=== PATIENT | male | born 1985 | race Caucasian/White ===

== ENCOUNTER 2024-01-04 12:49 | Emergency (ER) | payer MEDICAID ==
[~2024-01-04] VITALS: Ht 188 cm; Wt 134.9 kg
[~2024-01-04 12:49] MED LIST: ONDA4TAB59 PO; SUCR1ORA12 PO
[2024-01-04 15:09] LABS: BASOPHILS % (AUTO) 0.4 % (0-1); EOSINOPHILS # (AUTO) 0.5 X10'3 (0-0.9); EOSINOPHILS % (AUTO) 4.2 % (0-6); HEMATOCRIT 48.7 % (42.0-52.0); LYMPHOCYTES # (AUTO) 1.3 X10'3 (1.1-4.8); LYMPHOCYTES % (AUTO) 11.5 % (21-51); MEAN CORPUSCULAR HEMOGLOBIN 33.5 PG (27.0-31.0); MEAN CORPUSCULAR HGB CONC 34.8 g/dL (33.0-36.5); MEAN CORPUSCULAR VOLUME 96.2 FL (78-98); MONOCYTES % (AUTO) 8.4 % (2-12); NEUTROPHILS # (AUTO) 8.8 X10'3 (1.8-7.7); NEUTROPHILS % (AUTO) 75.5 % (42-75); PLATELET COUNT 287 X10'3 (140-440); RED BLOOD COUNT 5.07 X10'6 (4.70-6.10); WHITE BLOOD COUNT 11.6 X10'3 (4.5-11.0)
[2024-01-04 15:21] LABS: ALANINE AMINOTRANSFERASE 40 U/L (12-78); ALBUMIN 4.1 G/DL (3.4-5.0); ALBUMIN/GLOBULIN RATIO 1.2 (1.1-1.5); ALKALINE PHOSPHATASE 75 IU/L (46-116); ANION GAP 5 (8-16); ASPARTATE AMINO TRANSFERASE 32 U/L (10-37); BILIRUBIN,TOTAL 1.6 MG/DL (0.1-1.0); BLOOD UREA NITROGEN 13 MG/DL (7-18); BUN/CREATININE RATIO 14.8 (10.0-20.0); CALCIUM 8.7 MG/DL (8.5-10.1); CHLORIDE 103 MMOL/L (99-107); CREATININE 0.88 MG/DL (0.60-1.10); GLUCOSE 101 MG/DL (70-104); LIPASE 27 U/L (16-77); SODIUM 137 MMOL/L (135-145); TOTAL CARBON DIOXIDE 28.6 MMOL/L (24-32); TOTAL PROTEIN 7.6 G/DL (6.4-8.2); eCRCL 130 ML/MIN; eGFR > 90 ML/MIN
[2024-01-04 15:31] LABS: POTASSIUM 4.5 MMOL/L (3.5-5.1)
[2024-01-04] MEDS ORDERED: normal saline 1000ml 1,000 ML IV ONE (15:40)
[2024-01-04 15:49] LABS: ETHANOL < 10 MG/DL (<10)
[2024-01-04] MEDS ORDERED: ondansetron/PF 4mg/2ml inj IV ONE (15:50)
[2024-01-04] MEDS ORDERED: morphine 4 MG/ML inj SYRINge IV ONE (15:50)
[2024-01-04] MEDS ORDERED: ONDA-243 PO (16:10)
[2024-01-04] MEDS ORDERED: LOPE2CAP14 PO (16:10)
[2024-01-04 16:40] VITALS: BP 146/96; PULSE 80; RESP 16; TEMP 97.6; O2SAT 99
== END 2024-01-04 16:41 | disposition home or self-care (01) ==
LOC: ER 12:49
DX: K52.89 Other specified noninfective gastroenteritis and colitis (principal); A08.8 Other specified intestinal infections; J45.909 Unspecified asthma, uncomplicated; F41.9 Anxiety disorder, unspecified; F32.A Depression, unspecified
CPT/HCPCS: 36415; 80053; 80320; 83690; 85025; 99283

== ENCOUNTER 2024-07-17 14:13 | Emergency (ER) | payer MEDICAID ==
[~2024-07-17] VITALS: Ht 190.5 cm; Wt 140.9 kg
[~2024-07-17 14:13] MED LIST changes: +LOPE2CAP14 PO; +ONDA-243 PO
[2024-07-17 14:15] VITALS: TEMP 97.4
--- NOTE | 2024-07-17 14:22 | ELECTROCARDIOGRAPH REPORT ---
[facility] Test Date: 2024-07-17 Test Time: 14:19:59 Pat Name: SCARLETT PACKING INSPECTOR Department: [facility]- Patient ID: [facility]-[id number] Room: Gender: M [employer]: : 1985 Requested By: CANDY BARROSO Order Number: [id number] Reading MD: Measurements Intervals [place] Rate: 80 P: 11 CT: 137 QRS: 41 QRSD: 102 T: -32 QT: 335 QTc: 387 Interpretive Statements Sinus rhythm Posterior infarct, old Borderline repolarization abnormality Please click the below link to view image of tracing.
[2024-07-17 14:55] LABS: BASOPHILS % (AUTO) 0.5 % (0-1); EOSINOPHILS # (AUTO) 0.3 X10'3 (0-0.9); EOSINOPHILS % (AUTO) 3.8 % (0-6); HEMATOCRIT 48.9 % (42.0-52.0); LYMPHOCYTES # (AUTO) 1.7 X10'3 (1.1-4.8); LYMPHOCYTES % (AUTO) 21.2 % (21-51); MEAN CORPUSCULAR HEMOGLOBIN 33.7 PG (27.0-31.0); MEAN CORPUSCULAR HGB CONC 34.8 g/dL (33.0-36.5); MEAN CORPUSCULAR VOLUME 96.9 FL (78-98); MEAN PLATELET VOLUME 8.5 FL (7.4-10.4); MONOCYTES # (AUTO) 0.6 X10'3 (0-0.9); MONOCYTES % (AUTO) 7.7 % (2-12); NEUTROPHILS # (AUTO) 5.4 X10'3 (1.8-7.7); NEUTROPHILS % (AUTO) 66.8 % (42-75); PLATELET COUNT 279 X10'3 (140-440); RED BLOOD COUNT 5.05 X10'6 (4.70-6.10); RED CELL DISTRIBUTION WIDTH 13.5 % (11.5-14.5)
[2024-07-17 15:09] LABS: ALANINE AMINOTRANSFERASE 52 U/L (12-78); ALBUMIN 4.1 G/DL (3.4-5.0); ALBUMIN/GLOBULIN RATIO 1.3 (1.1-1.5); ALKALINE PHOSPHATASE 90 IU/L (46-116); ANION GAP 5 (8-16); ASPARTATE AMINO TRANSFERASE 26 U/L (10-37); BILIRUBIN,TOTAL 1.8 MG/DL (0.1-1.0); BLOOD UREA NITROGEN 13 MG/DL (7-18); BUN/CREATININE RATIO 12.9 (10.0-20.0); CALCIUM 9.2 MG/DL (8.5-10.1); CHLORIDE 103 MMOL/L (99-107); CREATININE 1.01 MG/DL (0.60-1.10); GLUCOSE 91 MG/DL (70-104); POTASSIUM 4.5 MMOL/L (3.5-5.1); SODIUM 137 MMOL/L (135-145); TOTAL CARBON DIOXIDE 29.5 MMOL/L (24-32); TOTAL PROTEIN 7.3 G/DL (6.4-8.2); eCRCL 116 ML/MIN; eGFR 82 ML/MIN
--- NOTE | 2024-07-17 15:13 | RADIOLOGY REPORT ---
Procedure: DI CHEST,SINGLE VIEW 07/17/2024 02:21 PM Indication: CP Comparison: None TECHNIQUE: DI CHEST,SINGLE VIEW FINDINGS: Medical devices: None. Cardiomediastinal: The heart is normal in size. Pulmonary vasculature is within normal limits. Lungs: No focal pulmonary opacity is seen. The costophrenic angles are clear. No pneumothorax. Bones/soft tissues: No acute abnormality is noted. IMPRESSION: 1. No acute cardiopulmonary disease.
[2024-07-17 15:15] LABS: PRO BRAIN NATRIURETIC PEPTIDE < 30 PG/ML (0-125)
--- NOTE | 2024-07-17 16:23 | Physician Documentation ---
History of Present Illness ~ Chief Complaint: Chest Pain Stated Complaint: CP Time Seen by MD: 16:09 Primary Medical Doctor: rica HPI Patient is seen today with acute onset of right-sided chest pain that was stabbing in nature and patient states it is associated when he moves his head back and look separate. Patient states he was concerned for a heart attack. Patient denies any previous heart attack or cardiac history or heart disease. Patient does admit to taking blood pressure medication for hypertension but denies any diabetes or other risk factors. Patient denies any nausea, vomiting, diarrhea, shortness of breath. Patient has no other concern or complaint at this time. Medication Reconciliation Allergies: Coded Allergies: No Known Allergies (Unverified , 01/04/24) Scheduled ONDANSETRON ODT 4mg tablet (Ondansetron Odt), 4 MG PO Q6H Ondansetron Hcl (Ondansetron Hcl), 4 MG PO Q6H Sucralfate (Carafate), 10 ML PO ACHS Scheduled PRN Loperamide HCl (Anti-Diarrheal), 1 CAP PO Q8H PRN for diarrhea Past Medical History Past Medical History: Asthma, Anxiety, Depression Past Surgical History: no surgical history Alcohol Use: Sober Drug Use: none Occupation: disabled Review of Systems Constitutional: Denies: chills, fever, weakness Eyes: Denies: pain, blurred vision ENT: Denies: ear pain, nose pain, throat pain, mouth pain Respiratory: Denies: cough, shortness of breath Cardiovascular: Denies: chest pain, palpitations Gastrointestinal: Denies: abdominal pain, nausea, vomiting Genitourinary: Denies: burning, dysuria Male Genitalia: Denies: penile discharge, testicular pain Neurological: Denies: headache, dizziness Musculoskeletal: Denies: pain, swelling Integumentary: Denies: rash, lesions Allergic/Immunologic: Denies: hives, itching Hematologic/Lymphatic: Denies: no symptoms reported Psychiatric: Denies: depression, anxiety Physical Exam Vital Signs: Temperature: 97.4, Source: Temporal, Heart Rate: 78, Respiratory Rate: 18, BP: 158/105, Pulse Oximetry: 96, Weight: 140.910 Oxygen Flow Rate: 0 Physical Exam General: Awake and Alert, no acute distress. HEENT: Conjunctiva pink, Sclera clear, Mucus Membranes moist. Neck: Supple without masses and tenderness. Resp: Unlabored. Lungs clear to auscultation bilaterally. Chest: On exam I do not appreciate any tenderness to palpation. Heart: Regular Rate and rhythm, normal S1 and S2 without murmur, rub or gallop. Abdomen: Soft and non tender no organomegaly Extremities: No cyanosis,clubbing or edema. Skin: Warm and Dry. Progress Results/Orders Results/Orders Vital Signs 07/17/24 07/17/24 14:15 16:10 Temp 97.4 Pulse 83 78 Resp 18 18 B/P (MAP) 155/104 158/105 (122) Pulse Ox 97 96 O2 Flow Rate 0 Laboratory Tests Test 07/17/24 14:30 07/17/24 16:23 White Blood Count 8.0 Red Blood Count 5.05 Hemoglobin 17.0 Hematocrit 48.9 Mean Corpuscular Volume 96.9 Mean Corpuscular Hemoglobin 33.7 H Mean Corpuscular Hemoglobin Concent 34.8 Red Cell Distribution Width 13.5 Platelet Count 279 Mean Platelet Volume 8.5 Neutrophils (%) (Auto) 66.8 Lymphocytes (%) (Auto) 21.2 Monocytes (%) (Auto) 7.7 Eosinophils (%) (Auto) 3.8 Basophils (%) (Auto) 0.5 Neutrophils # (Auto) 5.4 Lymphocytes # (Auto) 1.7 Monocytes # (Auto) 0.6 Eosinophils # (Auto) 0.3 Basophils # (Auto) 0.0 CBC Comment Sodium Level 137 Potassium Level 4.5 Chloride Level 103 Carbon Dioxide Level 29.5 Anion Gap 5 L Blood Urea Nitrogen 13 Creatinine 1.01 Estimated GFR/1.73 m2 82 BUN/Creatinine Ratio 12.9 Glucose Level 91 Calcium Level 9.2 Total Bilirubin 1.8 H Aspartate Amino Transf (AST/SGOT) 26 Alanine Aminotransferase (ALT/SGPT) 52 Alkaline Phosphatase 90 Troponin I High Sensitivity < 4 L Troponin I High Sens Percent Delta Troponin I Hi Sens Absolute Change Pro-B-Type Natriuretic Peptide < 30 Total Protein 7.3 Albumin 4.1 Globulin 3.2 Albumin/Globulin Ratio 1.3 Chemistry Comments EKG/XRAY/CT/US/VASC/MRI EKG : Additional Comment EKG interpreted by myself today shows normal rate at 80 beats per minute, normal sinus rhythm, no axis deviation, no sign of ST segment elevation or ischemic changes. Chest X-Ray : Additional Comments X-ray interpreted by myself shows no acute cardiopulmonary disease, no large effusion, no large infiltrate, normal mediastinum. DIAGNOSTIC RADIOLOGY Patient: SCARLETT MORALES Medical Record: [id number] [facility] : 1985, Age: 38 Sex: Male Location: ER Patient Status: [facility] ER Service Date/Time: 07/17/24/ 1431 Ordering Physician: CANDY BARROSO MD Exam: CHEST,SINGLE VIEW Procedure: DI CHEST,SINGLE VIEW 07/17/2024 02:21 PM Indication: CP Comparison: None TECHNIQUE: DI CHEST,SINGLE VIEW FINDINGS: Medical devices: None. Cardiomediastinal: The heart is normal in size. Pulmonary vasculature is within normal limits. Lungs: No focal pulmonary opacity is seen. The costophrenic angles are clear. No pneumothorax. Bones/soft tissues: No acute abnormality is noted. IMPRESSION: 1. No acute cardiopulmonary disease. Electronically Signed by:MICHELLE CLEMENTE MD Date & Time: 07/17/24 1511 Dictated by: MICHELLE CLEMENTE MD Dictation date and time: 07/17/24 1429 Primary Care Provider: NO PRIMARY CARE PROVIDER cc: CANDY BARROSO MD ~ Heart Score: Heart Score Response (Comments) Value History Moderate Suspicious 1 EKG Normal 0 Age <45 0 Risk Factors 1 or 2 risk factors 1 Troponin Normal limit 0 Total 2 Medical Decision Making Findings Patient is seen today with acute onset of right-sided chest pain that was stabbing in nature and patient states it is associated when he moves his head back and look separate. Patient states he was concerned for a heart attack. Patient denies any previous heart attack or cardiac history or heart disease. Patient does admit to taking blood pressure medication for hypertension but denies any diabetes or other risk factors. Patient denies any nausea, vomiting, diarrhea, shortness of breath. Patient has no other concern or complaint at this time. Patient labs, EKG, and chest x-ray are all unremarkable with negative troponin. Patient will follow up with primary care for further eval and treatment to reduce cardiac risk. Patient voiced understanding. I recommended patient maintain a more healthy body weight and continue healthy diet and exercise and activity level. Departure Disposition: HOME / SELF CARE / HOMELESS Impression: Primary Impression: Chest pain Qualified Codes: R07.9 - Chest pain, unspecified Discharge Instructions: Nonspecific Chest Pain, Adult Additional Instructions: Patient labs, EKG, and chest x-ray are all unremarkable with negative troponin. Patient will follow up with primary care for further eval and treatment to reduce cardiac risk. Patient voiced understanding. I recommended patient maintain a more healthy body weight and continue healthy diet and exercise and activity level. Referrals: NO PRIMARY CARE PROVIDER (PCP) Signature Scribe Signature: No scribe Attestation: No scribe JOHANA PRIEST PAC July 17, 2024 16:23
[2024-07-17 17:04] VITALS: BP 141/91; PULSE 68; RESP 15; O2SAT 95
== END 2024-07-17 17:06 | disposition home or self-care (01) ==
LOC: ER 14:13
DX: R07.89 Other chest pain (principal); I10 Essential (primary) hypertension; J45.909 Unspecified asthma, uncomplicated; F41.9 Anxiety disorder, unspecified; F32.A Depression, unspecified
CPT/HCPCS: 36415; 71045; 80053; 83880; 84484; 85025; 93005; 99285